=== PATIENT | male | born 1970 | race American Indian/Alaskan Native ===

== ENCOUNTER 2018-11-22 20:14 | Emergency (ER) | payer OTHER ==
[2018-11-22 20:22] VITALS: BP 125/72
[2018-11-22] MEDS ORDERED: BOOSTRIX IM ONE ×2 (20:26→22:46)
--- NOTE | 2018-11-22 20:26 | Emergency Department Report ---
Blank Doc - Documentation Documentation: This is a 48-year-old male that presents with left ring finger lac. Stated ba ppened today. Not UTD with tetanus. This initial assessment diagnostic orders/clinical plan/treatment(s) is/are subject to change based on patient's health status, clinical progression and re-assessment by fellow clinical providers in the ED. Further treatment and workup at subsequent clinical providers discretion. Patient/guardians urged not to elope from ED s their condition may be serious if not clinically assessed and managed. Initial orders include: 1-Patient sent to MAIN for further evaluation and treatment 2- tetanus ordered
[2018-11-22] MEDS ORDERED: XYLOCAINE 1% MPF 5 mL INFILTRATI ONE (22:29)
--- NOTE | 2018-11-22 22:32 | Emergency Department Report ---
ED Laceration HPI - HPI Chief Complaint: Wound/Laceration Stated Complaint: FINGER LACERATION Time Seen by Provider: 11/22/18 20:25 Occurred When: Today Location: Upper Extremity (left 4th digit) Severity: moderate Tetanus Status: Not up to Date Laceration Symptoms: Yes Pain, No Foreign Body Sensation, No Numbness, No Weakness Other History: This is a 48-year-old -[place] male who presents with a laceration to the left fourth proximal digit. Patient states he was moving a stove today around 1930 when he accidentally cut his finger. He cleaned wound with soap and water. Patient states he cannot control bleed and so he came in for further evaluation. He denies foreign body sensation, numbness or tingling, or swelling. ED Review of Systems ROS: Stated complaint: FINGER LACERATION Other details as noted in HPI Constitutional: denies: chills, fever Respiratory: denies: cough, shortness of breath, wheezing Cardiovascular: denies: chest pain, palpitations Gastrointestinal: denies: abdominal pain, nausea, diarrhea Musculoskeletal: denies: back pain, joint swelling, arthralgia Skin: lesions (laceration to left fourth digit). denies: rash Neurological: denies: headache, weakness, paresthesias Psychiatric: denies: anxiety, depression ED Past Medical Hx - Past Medical History Previous Medical History?: No - Surgical History Past Surgical History?: No - Social History Smoking Status: Never Smoker Substance Use Type: None - Medications Home Medications: Home Medications Medication Instructions Recorded Confirmed Last Taken Type Cyclobenzaprine HCl [Flexeril 5 MG 5 mg PO Q8HR #20 tablet 08/02/15 Unknown Rx TAB] HYDROcodone/APAP 5-325 [[place] 1 each PO Q6HR PRN #20 tablet 08/02/15 Unknown Rx 5-325 mg TAB] Ibuprofen [Motrin 800 MG tab] 800 mg PO Q8HR PRN #30 tablet 08/02/15 Unknown Rx Clindamycin [Clindamycin CAP] 300 mg PO Q8H 7 Days #21 cap 11/23/18 Unknown Rx traMADol [Ultram 50 MG tab] 50 mg PO Q6HR PRN #12 tablet 11/23/18 Unknown Rx Laceration Physical Exam - Exam General: Vital signs noted. No distress. Alert and acting appropriately. Wound Length (cm): 3 Laceration Location: Upper Extremity (3 cm horizontal laceration into the dermis of 3rd phalanx, proximal metacarpal, tendon exposed and intact, serosanguineous discharge, mild swelling, and tenderness, FROM) Laceration Exam: Yes Exposed Tendon, Vessel, or Nerve, Yes Normal Distal CMS, No Foreign Body, No Tendon Injury ED Course Vital Signs 11/22/18 20:19 Temperature 98.0 F Pulse Rate 69 Respiratory 16 Rate Blood Pressure 125/72 O2 Sat by Pulse 96 Oximetry ED Medical Decision Making - Radiology Data Radiology results: report reviewed FINAL REPORT EXAM: XR FINGER(S) 2+V LT HISTORY: 4th proximal phalanx laceration TECHNIQUE: AP view of the left hand and 2 additional views of the left 4th finger. PRIORS: None. FINDINGS: There is no evidence of acute fracture. There is diffuse soft tissue swelling of the 4th finger. There is mottled soft tissue lucency on the volar surface at the level the middle phalanx consistent with air. The bones are normally aligned and mineralized. There is mild osteophyte formation at the 1st and 2nd metacarpophalangeal joints, at the interphalangeal joint of the thumb and at the 5th distal interphalangeal joint. IMPRESSION: No evidence of acute fracture or subluxation. Soft tissue swelling of the 4th finger. Soft tissue air is most likely secondary to laceration although may also be seen with a gas producing infection. Early polyarticular osteoarthrosis - Medical Decision Making This is a 48 y.o. male presents with left 3rd phalanx proximal laceration that occurred today. Patient examined by me. Patient is non-toxic appearing and stable. X-ray of left fingers obtained and dictated by radiologist and report reviewed by myself. No evidence of acute fracture or subluxation. Soft tissue swelling of the 4th finger. Soft tissue air is most likely secondary to laceration although may also be seen with a gas producing infection. Early polyarticular osteoarthrosis. Physical examination is susceptible of cellulites of 3rd proximal phalanx. Discharged home for outpatient treatment with clindamycin and tramadol. Discussed ER care plan with patient. Patient agreed with plan. F/U with PCP. Critical care attestation.: If time is entered above; I have spent that time in minutes in the direct care of this critically ill patient, excluding procedure time. ED Disposition Clinical Impression: Laceration of finger Qualifiers: Encounter type: initial encounter Finger: middle finger Damage to nail status: without damage Foreign body presence: without foreign body Laterality: left Qualified Code(s): S61.213A - Laceration without foreign body of left middle finger without damage to nail, initial encounter Disposition: DC-01 TO HOME OR SELFCARE Is pt being admited?: No Does the pt Need Aspirin: No Condition: Stable Instructions: Suture Care (ED), Laceration (ED) Additional Instructions: Take antibiotics as prescribed for the full course. Keep wound dry and clean for 48 hours. Avoid putting to much tension on wound site. Prop arm up on pillows to decrease swelling. Follow up with Primary Care Provider in 2-3 days. Have sutures removed in 7 days by primary care provider or in ER. Return to ER if red, swollen, foul discharge, or fever. Prescriptions: Clindamycin [Clindamycin CAP] 300 mg PO Q8H 7 Days #21 cap traMADol [Ultram 50 MG tab] 50 mg PO Q6HR PRN #12 tablet PRN Reason: Pain Referrals: SAMANTHA SALGADO [Primary Care Provider] - 3-5 Days [facility] [Outside] - 3-5 Days [facility] [Outside] - 3-5 Days [facility] [Outside] - 3-5 Days Forms: Work/School Release Form(ED), Accompanied Note Time of Disposition: 00:08
--- NOTE | 2018-11-22 23:27 | XRay Report ---
FINAL REPORT EXAM: XR FINGER(S) 2+V LT HISTORY: 4th proximal phalanx laceration TECHNIQUE: AP view of the left hand and 2 additional views of the left 4th finger. PRIORS: None. FINDINGS: There is no evidence of acute fracture. There is diffuse soft tissue swelling of the 4th finger. There is mottled soft tissue lucency on the volar surface at the level the middle phalanx consistent with air. The bones are normally aligned and mineralized. There is mild osteophyte formation at the 1st and 2nd metacarpophalangeal joints, at the interphalangeal joint of the thumb and at the 5th distal interpha langeal joint. IMPRESSION: No evidence of acute fracture or subluxation. Soft tissue swelling of the 4th finger. Soft tissue air is most likely secondary to laceration althou gh may also be seen with a gas producing infection. Early polyarticular osteoarthrosis
== END 2018-11-23 00:23 | disposition home or self-care (01) ==
LOC: ED 20:14
DX: S61.213A Laceration without foreign body of left middle finger without damage to nail, initial encounter (principal); W45.8XXA Other foreign body or object entering through skin, initial encounter; Y93.89 Activity, other specified; Y92.89 Other specified places as the place of occurrence of the external cause; Y99.8 Other external cause status
CPT/HCPCS: 90471; 90715